=== PATIENT | female | born 1940 | race Caucasian/White ===

== ENCOUNTER → 2017-09-17 | Outpatient (CLI) | payer MEDICARE, OTHER ==
--- NOTE | 2017-09-17 18:19 | RAD ---
Right upper extremity venous Doppler dated 09/17/2017. No comparison available. CLINICAL INDICATION: Pain after injury. Swelling. FINDINGS: Grayscale, color-flow and spectral waveform analysis performed to include the deep venous system of the right upper extremity. Normal compressibility, phasicity and augmentation of flow throughout. No filling defects are seen. IMPRESSION: No evidence of right upper extremity deep vein thrombosis. Electronically signed by: Donovan French MD (09/17/2017 6:17 PM) [id number]
--- NOTE | 2017-09-17 18:20 | RAD ---
Left upper extremity venous Doppler dated 09/17/2017. No comparison available. Clinical indication: Pain after injury. Swelling. FINDINGS: Grayscale, color-flow and spectral waveform analysis performed to include the deep venous system of the left upper extremity. Normal compressibility, phasicity and augmentation of flow throughout. No filling defects are seen. IMPRESSION: No evidence of left upper extremity deep vein thrombosis. Electronically signed by: Donovan French MD (09/17/2017 6:17 PM) [id number]
--- NOTE | 2017-09-17 18:30 | RAD ---
Two-view right humerus and three-view right shoulder dated 09/17/2017. No comparison available. CLINICAL INDICATION: Pain after fall. FINDINGS: 3 views of the right shoulder show a transverse fracture through the surgical neck of the right humerus, not significantly displaced. Fracture lines extend to the greater tuberosity. Glenohumeral alignment is anatomic. Mild degenerative change of the AC joint. No additional fractures are seen. 2 views of the right humerus show intact humeral shaft distally. No apparent abnormality at the elbow. IMPRESSION: 1. Comminuted minimally displaced fracture of the proximal right humerus as described above. Electronically signed by: Donovan French MD (09/17/2017 6:27 PM) [id number]
== END | disposition home or self-care (01) ==
LOC: RAD 16:08
PROVIDERS: ATTEND Nurse Practitioner Family
DX: S42.211A Unspecified displaced fracture of surgical neck of right humerus, initial encounter for closed fracture (principal); M19.011 Primary osteoarthritis, right shoulder; M79.622 Pain in left upper arm; W19.XXXA Unspecified fall, initial encounter; Y93.89 Activity, other specified; Y92.89 Other specified places as the place of occurrence of the external cause; Y99.8 Other external cause status
CPT/HCPCS: 73030; 73060; 93971

== ENCOUNTER → 2020-07-15 | Outpatient (CLI) | payer MEDICARE, OTHER ==
--- NOTE | 2020-07-15 12:27 | RAD ---
EXAM: Chest, 2 views. HISTORY: Preoperative evaluation. COMPARISON: None. FINDINGS: 2 views of the chest are obtained. There is no infiltrate, pleural effusion or pneumothorax. There is a prominent cardiac silhouette. IMPRESSION: No acute pulmonary finding. Electronically signed by: Kristin Mancuso MD (07/15/2020 12:24 PM) [id number]
== END | disposition home or self-care (01) ==
LOC: DXRAD 11:12
PROVIDERS: ATTEND Orthopaedic Surgery Hand Surgery
DX: Z01.818 Encounter for other preprocedural examination (principal); S52.022A Displaced fracture of olecranon process without intraarticular extension of left ulna, initial encounter for closed fracture; X58.XXXA Exposure to other specified factors, initial encounter; Y93.89 Activity, other specified; Y92.89 Other specified places as the place of occurrence of the external cause; Y99.8 Other external cause status; I51.7 Cardiomegaly
CPT/HCPCS: 71046

== ENCOUNTER → 2022-03-16 | Outpatient (CLI) | payer MEDICARE, OTHER ==
--- NOTE | 2022-03-17 08:38 | RAD ---
EXAM: Pelvic sonogram. HISTORY: Mass or distended bladder on MRI. TECHNIQUE: Sonographic imaging of the pelvis was performed. COMPARISON: None. FINDINGS: The uterus measures 8.6 x 4.5 x 2.9 cm. The endometrial stripe measures 3.1 abdomen thickne ss. The ovaries are normal in size and demonstrate normal blood flow. There is no pelvic free fluid. IMPRESSION: Unremarkable pelvic sonogram. Electronically signed by: Kristin Mancuso MD (03/17/2022 8:36 AM) [id number]
== END ==
LOC: US 15:41
PROVIDERS: ATTEND Specialist
DX: R19.00 Intra-abdominal and pelvic swelling, mass and lump, unspecified site (principal)
CPT/HCPCS: 76856